=== PATIENT | female | born 1985 | race Caucasian/White ===

== ENCOUNTER → 2016-06-15 | Outpatient (CLI) | payer OTHER ==
--- NOTE | 2016-06-15 13:27 | Diagnostic Imaging Report ---
INDICATION: Abdominal pain. TECHNIQUE: Abdominal sonography performed in the routine fashion. FINDINGS: The liver shows normal echogenicity with no focal lesions. Gallbladder shows no gallstones or gallbladder wall thickening. There is perhaps some minimal sludge in the gallbladder. Common duct measured 3.7 mm. Sonographic Ricci sign was negative. Pancreas appears unremarkable. The spleen was nonenlarged and shows no focal lesions. Visualized portions of the aorta and IVC were normal. Right kidney measured 10.0 cm in length and appeared normal. The left kidney measured 11.5 cm in length and appeared normal. There is no ascites or abnormal fluid collection. Scanning in the right lower quadrant was performed but the appendix was not visualized. IMPRESSION: Essentially unremarkable abdominal sonography, except for some minimal sludge in the gallbladder with negative sonographic Ricci's sign. Appendix was nonvisualized. If pain persists, consider CT study. Dictated by: Dictated on workstation # [id number]
== END ==
LOC: RAD 10:17
PROVIDERS: ATTEND Family Medicine
DX: R10.84 Generalized abdominal pain (principal)
CPT/HCPCS: 76700

== ENCOUNTER → 2016-06-21 | Outpatient (CLI) | payer OTHER ==
--- NOTE | 2016-06-21 11:43 | Diagnostic Imaging Report ---
PROCEDURE: US PELVIC (NON OB). INDICATION: Pelvic pain. TECHNIQUE: Multiple grayscale images are obtained through the pelvis transabdominally. COMPARISON: None. FINDINGS: The uterus is 8.9 x 4 cm and in normal position. The myometrium is within normal limits. The endometrium is normal with a maximum thickness of about 9 mm. No free fluid is identified. The right ovary measures 2.3 x 3 x 1.8 cm. Arterial flow is demonstrated to the right ovary with color Doppler imaging. The left ovary is 2.1 x 3.4 x 2.2 cm. It contains a small follicle measuring about 1.6 cm. Flow to the left ovary is demonstrated with color imaging. The right lower quadrant region is scanned; however, the appendix cannot be visualized and we cannot comment upon whether it is normal or abnormal. IMPRESSION: 1. Negative transabdominal pelvic ultrasound. Dictated by: Dictated on workstation # [id number]
== END ==
LOC: RAD 08:21
PROVIDERS: ATTEND Family Medicine
DX: R10.2 Pelvic and perineal pain (principal)
CPT/HCPCS: 76856